=== PATIENT | male | born 1975 | race African-American/Black ===

== ENCOUNTER 2016-11-23 15:33 | Emergency (ER) | payer OTHER ==
--- NOTE | 2016-11-23 16:19 | REP ---
Chest one-view HISTORY: Chest pain Comparison: None The lungs are clear. The heart is normal in size. The pulmonary vasculature is normal in appearance. Impression: No acute disease. Signed by Jose Granger MD 11/23/2016 04:11 P
[2016-11-23 16:26] LABS: ANION GAP 8 MEQ/L (8-16); BLOOD UREA NITROGEN 21 MG/DL (7-18); CALCIUM LEVEL 8.7 MG/DL (8.5-10.1); CARBON DIOXIDE LEVEL 29 MEQ/L (21-32); CHLORIDE LEVEL 101 MEQ/L (98-107); CREATININE FOR GFR 1.25 MG/DL (0.70-1.30); GLOMERULAR FILTRATION RATE > 60.0 (>60); GLUCOSE, FASTING 94 MG/DL (70-105); POTASSIUM SERUM 3.9 MEQ/L (3.5-5.1); SODIUM LEVEL 138 MEQ/L (136-145)
[2016-11-23] MEDS ORDERED: KETOROLAC 30 MG/ML VIAL (J1885) As Ordered ONE (16:30)
[2016-11-23] MEDS ORDERED: ACETAMINOPHEN 325 MG TAB As Ordered ONE (16:30)
[2016-11-23 16:33] LABS: BASO % 0.1 % (0.0-1.0); EOS % 0.5 % (0.0-3.0); LARGE UNSTAINED CELL # 0.1 K/mm3 (0.0-0.4); LARGE UNSTAINED CELL % 1.3 % (0.0-4.0); LYMPH # 0.5 K/mm3 (1.5-4.5); LYMPH % 5.1 % (24.0-44.0); MEAN CORPUSCULAR HEMOGLOBIN 30.1 pg (27.0-33.0); MEAN CORPUSCULAR VOLUME 88.5 fl (80.0-96.0); MONO # 0.6 K/mm3 (0.0-0.8); MONO % 5.5 % (0.0-5.0); NEUTROPHILS # 9.1 K/mm3 (1.8-7.7); NEUTROPHILS % 87.4 % (36.0-66.0); PLATELET COUNT, AUTOMATED 156 k/mm3 (150-450); RED CELL DISTRIBUTION WIDTH 12.5 % (11.5-14.5); WHITE BLOOD COUNT 10.4 K/mm3 (4.0-10.0)
--- NOTE | 2016-11-23 16:43 | REP ---
SINGLE VIEW CHEST, LATERAL FILM: HISTORY: Chest pain. COMPARISON: Portable AP view of the chest obtained 30 minutes earlier. FINDINGS: The posterior pleural angles are sharp. Heart does not appear enlarged on lateral radiograph. No infiltrate is seen. IMPRESSION: No additional abnormality. No active disease. Signed by Guido Ba MD 11/23/2016 04:55 P
--- NOTE | 2016-11-23 18:55 | EDDOCDS ---
Physician Documentation [facility] Name: Shai Mckeon Age: 41 yrs Sex: Male : 1975 Arrival Date: 11/23/2016 Time: 15:33 Bed 18 Private MD: Disposition: 11/23/16 18:18 Discharged to Home/Self Care. Impression: Pleurodynia. - Condition is Stable. - Prescriptions for Prednisone 20 mg Oral Tablet - take 3 tablet by ORAL route once daily for 5 days; 15 tablet. ketorolac 10 mg Oral Tablet - take 1 tablet by ORAL route 3 times per day As needed MDD- 30mg. Up to 5 days total use.; 15 tablet. - Medication Reconciliation, Local Pharmacy Hours form. - Follow up: Private Physician; When: Call to arrange an appointment; Reason: Recheck today's complaints. - Problem is new. - Symptoms have improved. Historical: - Allergies: Ciprofloxacin HCl (Swelling); - Home Meds: 1. none - PMHx: none; - PSHx: Right Wrist Fracture Repair; - Social history: Smoking status: Patient states was never smoker of tobacco. No barriers to communication noted, The patient speaks fluent Slovenian. - Family history: Not pertinent. - : The pt / caregiver states he / she is not on anticoagulants. Home medication list is obtained from the patient. - Exposure Risk Screening:: None identified. Vital Signs: 11/23 15:48 BP 122 / 70; Pulse 82; Resp 20; Temp 100.7(O); Pulse Ox 97% on R/A; Weight 99.79 kg / jc4 220 lbs; Height 5 ft. 10 in. (177.80 cm); Pain 7/10; 16:03 BP 131 / 80 (auto/); jc4 16:03 Pulse 82 MON; Pulse Ox 97% ; jc4 16:54 BP 123 / 66 (auto/); jc4 16:54 Pulse 86 MON; Pulse Ox 96% ; jc4 16:55 BP 123 / 66; Pulse 93; Resp 20 S; Pulse Ox 96% on R/A; Pain 3/10; jc4 17:23 Pulse 84 MON; Pulse Ox 95% ; jc4 17:24 BP 121 / 65 (auto/); jc4 17:54 BP 132 / 76 (auto/); jc4 17:59 Pulse 88 MON; Pulse Ox 93% ; jc4 18:14 Temp 99.7(O); jc4 18:48 BP 133 / 63; Pulse 90; Resp 20; Temp 98.9(O); Pulse Ox 96% on R/A; Pain 2/10; jc4 15:48 Body Mass Index 31.57 (99.79 kg, 177.80 cm) jc4 MDM: 15:36 Landscape Account Manager/Pulse Ox/q 30 min VS ordered. sd1 15:36 IV Saline Lock ordered. sd1 15:36 Rhythm Strip to chart ordered. sd1 15:36 Undress patient appropriately for examination ordered. sd1 15:37 Basic Metabolic Profile Ordered. EDMS 15:37 CBC with Diff Ordered. EDMS 15:37 Cardiac Injury Profile Ordered. EDMS 15:37 Troponin Ordered. EDMS 15:37 portable chest Ordered. EDMS 15:37 ECG WITH READING ER PHYS+CARDIAG ordered. EDMS 16:10 -Blood Culture (Adults Only), peripheral from different site, or from device/port/PICC cs11 etc. if present ordered. 16:10 Acetaminophen Tablet 975 mg PO once ordered. cs11 16:10 ketorolac 30 mg IVP once ordered. cs11 16:11 -Blood Culture Ordered. EDMS 16:11 Lactic Acid (Catherine tube on ice) Ordered. EDMS 16:11 -Influenza A&B Rapid Antigen - Nose Ordered. EDMS 16:19 -Blood Culture (Adults Only), peripheral from different site, or from device/port/PICC lbd etc. if present complete. 16:30 BLOOD CULTURES Ordered. EDMS 16:31 Chest, 1 view Ordered. EDMS 16:49 Basic Metabolic Profile Reviewed. cs11 16:49 CBC with Diff Reviewed. cs11 16:49 Cardiac Injury Profile Reviewed. cs11 16:49 Troponin Reviewed. cs11 16:49 portable chest Reviewed. cs11 16:49 NS 0.9% 1000 ml IV at bolus once ordered. cs11 18:14 Lactic Acid (Catherine tube on ice) Reviewed. cs11 18:14 -Influenza A&B Rapid Antigen - Nose Reviewed. cs11 18:14 Chest, 1 view Reviewed. cs11 Administered Medications: 16:40 Drug: ketorolac 30 mg [ketorolac 30 mg/mL (1 mL) injection solution (1 mL)] Route: IVP; jc4 Site: left antecubital; 16:55 Follow up: BP 123 / 66; Pulse 93 bpm; Resp 20 bpm Spontaneous; Pulse Ox 96% RA; Pain jc4 01/28 Adult 16:42 Drug: Acetaminophen 975 mg [acetaminophen 325 mg tablet (3 tabs)] Route: PO; jc4 18:14 Follow up: Temp 99.7 Oral jc4 16:55 Drug: NS 0.9% 1000 ml [sodium chloride 0.9 % intravenous solution] Route: IV; Rate: jc4 bolus; Site: left antecubital; 18:48 Follow up: IV Status: Completed infusion; IV Intake: 1000ml jc4 Signatures: Dispatcher [employer] EDNahomi Edwards MD MD sd1 Luz Carcamo, Vehicle Maintenance Supervisor Unit lbd Shantel Hopkins RN RN jc4 Roel Bush, DO cs11 The chart was reviewed and I authenticate all verbal orders and agree with the evaluation and treatment provided.Corrections: (The following items were deleted from the chart) 16:30 16:11 Chest, 2 view (PA\E\Lat)+XR ordered. EDMS EDMS MTDD
--- NOTE | 2016-11-23 18:55 | EDDOCDS ---
Nurse's Notes [facility] Name: Shai Mckeon Age: 41 yrs Sex: Male : 1975 Arrival Date: 11/23/2016 Time: 15:33 Bed 18 Private MD: Diagnosis: Pleurodynia Presentation: 11/23 15:38 Presenting complaint: EMS states: that they were called to [place] [id number] Facility for patient who developed chest pain that began at 1200 today. States went to [facility] at 1415. Was given 1 Nitroglycerin at [facility]. Aspirin was taken ENDOCRINOLOGIST. Suicide/Homicide risk assessment- the patient denies having any suicidal and/or homicidal ideations and does not present with any other emotional, behavioral or mental health complaints. Status: Patient is not a rn patient services or dependent. Transition of care: patient was not received from another setting of care. Care prior to arrival: See EMS report. Medications administered prior to arrival: NTG, Saline lock initiated. Glucose check. 119 mg/dl. 15:38 Method Of Arrival: Ambulance [facility] 15:49 Adult Sepsis Screening: The patient does not have new or worsening altered mentation. jc4 Patient's respiratory rate is less than 22. Systolic blood pressure is greater than 100. Patient has a qSOFA score of 0- Negative Sepsis Screen. 15:49 Acuity: VINNY Level 2 4 Triage Assessment: 15:41 General: Appears in no apparent distress. Pain: Pain currently is 7 out of 10 on a pain jc4 scale. The patient is triaged at the bedside. See Assessment in Nurses Notes section of ED record. Cardiovascular: Chest pain is described as Pain is 7 out of 10 on a pain scale. is located in scapular region radiates Does not radiate. episodes are continuous began at 1200 is aggravated by activity, breathing. 18:17 Pt Declines HIV testing. jc4 Historical: - Allergies: Ciprofloxacin HCl (Swelling); - Home Meds: 1. none - PMHx: none; - PSHx: Right Wrist Fracture Repair; - Social history: Smoking status: Patient states was never smoker of tobacco. No barriers to communication noted, The patient speaks fluent Cape Verdean. - Family history: Not pertinent. - : The pt / caregiver states he / she is not on anticoagulants. Home medication list is obtained from the patient. - Exposure Risk Screening:: None identified. Screenin:10 Screening information is obtained from the patient. Fall risk: No risks identified. jc4 Assistance ADL's: requires no assistance with activities of daily living. Abuse/DV Screen: The patient / caregiver reports he/she is: not in a situation that causes fear, pain or injury. Nutritional screening: No deficits noted. Advance Directives: Currently, there is no health care proxy. There is no active DNR order. There is no living will. There is no Power of Bilingual Executive Assistant. home support is adequate. Assessment: 15:35 General: Appears in no apparent distress, Behavior is cooperative. Pain: Pain currently jc4 is 7 out of 10 on a pain scale. Pain: Location: thoracic area. Neurological: Level of Consciousness is awake, alert, Oriented to person, place, time. EENT: Oral mucosa is moist. Cardiovascular: Rhythm is sinus rhythm No ectopy. Cardiovascular: Edema is absent. Respiratory: Airway is patent Respiratory effort is even, unlabored, Respiratory pattern is regular, symmetrical, Breath sounds are clear bilaterally. Derm: Skin is pink, warm & dry. 16:30 Reassessment: Patient appears in no apparent distress at this time. General: Appears. jc4 18:15 General: Appears Reports Pt resting on stretcher. Appears comfortable at this time. jc4 Color pink, skin warm and dry. Respirations easy and full. hydraulic riveter - sinus rhythm without ectopy. IVF infusing well, site clear. Call bolaños in reach. Correction officers at bedside. 18:48 General: Appears in no apparent distress, Behavior is cooperative, pleasant. Pain: Pain jc4 currently is 3 out of 10 on a pain scale. Neurological: Level of Consciousness is awake, alert, Oriented to person, place, time. Respiratory: Airway is patent Respiratory effort is even, unlabored, Respiratory pattern is regular, symmetrical. Derm: Skin is pink, warm & dry. Vital Signs: 15:48 BP 122 / 70; Pulse 82; Resp 20; Temp 100.7(O); Pulse Ox 97% on R/A; Weight 99.79 kg; jc4 Height 5 ft. 10 in. (177.80 cm); Pain 7/10; 16:03 BP 131 / 80 (auto/); jc4 16:03 Pulse 82 MON; Pulse Ox 97% ; jc4 16:54 BP 123 / 66 (auto/); jc4 16:54 Pulse 86 MON; Pulse Ox 96% ; jc4 16:55 BP 123 / 66; Pulse 93; Resp 20 S; Pulse Ox 96% on R/A; Pain 3/10; jc4 17:23 Pulse 84 MON; Pulse Ox 95% ; jc4 17:24 BP 121 / 65 (auto/); jc4 17:54 BP 132 / 76 (auto/); jc4 17:59 Pulse 88 MON; Pulse Ox 93% ; jc4 18:14 Temp 99.7(O); jc4 18:48 BP 133 / 63; Pulse 90; Resp 20; Temp 98.9(O); Pulse Ox 96% on R/A; Pain 2/10; jc4 15:48 Body Mass Index 31.57 (99.79 kg, 177.80 cm) jc4 Vitals: 15:41 Log In Time N/A - ambulance arrival. jc4 ED Course: 15:34 Patient visited by Luz Carcamo, Sound Effects Supervisor. lbd 15:34 Patient moved to Waiting lbd 15:35 Shantel Hopkins, [place] is Primary Nurse. lbd 15:35 Patient moved to 18 lbd 15:49 The patient / caregiver is instructed regarding the plan of care and ED course. Cardiac jc4 monitor on. Pulse ox on. NIBP on. 15:49 Maintain field IV. Dressing intact. Site clean & dry. Gauge & site: 18 gauge left jc4 antecubital. 15:50 Triage Initiated jc4 15:50 EKG done. (by ED staff). Reviewed by Nahomi Moore MD. ct3 15:52 Patient visited by Alisson Sams PCA. ct3 15:59 Basic Metabolic Profile Sent. jc4 15:59 CBC with Diff Sent. jc4 15:59 Cardiac Injury Profile Sent. jc4 15:59 Troponin Sent. jc4 16:02 Roel Bush DO is Attending Physician. cs11 16:02 Patient visited by Roel Bush DO. cs11 16:37 portable chest Returned. EDMS 16:39 Patient visited by Shantel Hopkins, [place]. jc4 16:40 Lactic Acid (Catherine tube on ice) Sent. jc4 16:40 -Blood Culture Sent. jc4 16:52 BLOOD CULTURES Sent. jc4 16:52 -Influenza A&B Rapid Antigen - Nose Sent. jc4 17:23 Chest, 1 view Returned. EDMS 18:10 Patient visited by Shantel Hopkins, [place]. jc4 18:17 Patient visited by Shantel Hopkins RN. jc4 18:49 Discontinued lock intact, bleeding controlled, pressure dressing applied, No jc4 redness/swelling at site. No procedures done that require assistance. Administered Medications: 16:40 Drug: ketorolac 30 mg [ketorolac 30 mg/mL (1 mL) injection solution (1 mL)] Route: IVP; jc4 Site: left antecubital; 16:55 Follow up: BP 123 / 66; Pulse 93 bpm; Resp 20 bpm Spontaneous; Pulse Ox 96% RA; Pain jc4 01/28 Adult 16:42 Drug: Acetaminophen 975 mg [acetaminophen 325 mg tablet (3 tabs)] Route: PO; jc4 18:14 Follow up: Temp 99.7 Oral jc4 16:55 Drug: NS 0.9% 1000 ml [sodium chloride 0.9 % intravenous solution] Route: IV; Rate: jc4 bolus; Site: left antecubital; 18:48 Follow up: IV Status: Completed infusion; IV Intake: 1000ml jc4 Intake: 18:48 IV: 1000.00ml; Total: 1000.00ml. jc4 Output: 18:11 Urine: 1000.00ml (Voided); Total: 1000.00ml. jc4 Order Results: Lab Order: Basic Metabolic Profile; SPEC'M 11/23/16 15:57 Test: GLUCOSE, FASTING; Value: 94; Range: 70-105; Units: MG/DL; Status: F Test: BLOOD UREA NITROGEN; Value: 21; Range: 7-18; Abnormal: Above high normal; Units: MG/DL; Status: F Test: CREATININE FOR GFR; Value: 1.25; Range: 0.70-1.30; Units: MG/DL; Status: F Test: GLOMERULAR FILTRATION RATE; Value: > 60.0; Range: >60; Status: F Test: SODIUM LEVEL; Value: 138; Range: 136-145; Units: MEQ/L; Status: F Test: POTASSIUM SERUM; Value: 3.9; Range: 3.5-5.1; Units: MEQ/L; Status: F Test: CHLORIDE LEVEL; Value: 101; Range: 98-107; Units: MEQ/L; Status: F Test: CARBON DIOXIDE LEVEL; Value: 29; Range: 21-32; Units: MEQ/L; Status: F Test: ANION GAP; Value: 8; Range: 8-16; Units: MEQ/L; Status: F Test: CALCIUM LEVEL; Value: 8.7; Range: 8.5-10.1; Units: MG/DL; Status: F Test Note: ; Units are mL/min/1.73 m2 Chronic Kidney Disease Staging per NKF: Stage I & II GFR >=60 Normal to Mildly Decreased Stage III GFR 30-59 Moderately Decreased Stage IV GFR 15-29 Severely Decreased Stage V GFR <15 Very Little GFR Left ESRD GFR <15 on CUSTOMER SERVICE ADVISOR Lab Order: CBC with Diff; SPEC'M 11/23/16 15:57 Test: WHITE BLOOD COUNT; Value: 10.4; Range: 4.0-10.0; Abnormal: Above high normal; Units: K/mm3; Status: F Test: RED BLOOD COUNT; Value: 4.96; Range: 4.30-6.10; Units: M/mm3; Status: F Test: HEMOGLOBIN; Value: 14.9; Range: 14.0-18.0; Units: g/dl; Status: F Test: HEMATOCRIT; Value: 43.8; Range: 42.0-52.0; Units: %; Status: F Test: MEAN CORPUSCULAR VOLUME; Value: 88.5; Range: 80.0-96.0; Units: fl; Status: F Test: MEAN CORPUSCULAR HEMOGLOBIN; Value: 30.1; Range: 27.0-33.0; Units: pg; Status: F Test: MEAN CORPUSCULAR HGB CONC; Value: 34.0; Range: 32.0-36.5; Units: g/dl; Status: F Test: RED CELL DISTRIBUTION WIDTH; Value: 12.5; Range: 11.5-14.5; Units: %; Status: F Test: PLATELET COUNT, AUTOMATED; Value: 156; Range: 150-450; Units: k/mm3; Status: F Test: NEUTROPHILS %; Value: 87.4; Range: 36.0-66.0; Abnormal: Above high normal; Units: %; Status: F Test: LYMPH %; Value: 5.1; Range: 24.0-44.0; Abnormal: Below low normal; Units: %; Status: F Test: MONO %; Value: 5.5; Range: 0.0-5.0; Abnormal: Above high normal; Units: %; Status: F Test: EOS %; Value: 0.5; Range: 0.0-3.0; Units: %; Status: F Test: BASO %; Value: 0.1; Range: 0.0-1.0; Units: %; Status: F Test: LARGE UNSTAINED CELL %; Value: 1.3; Range: 0.0-4.0; Units: %; Status: F Test: NEUTROPHILS #; Value: 9.1; Range: 1.8-7.7; Abnormal: Above high normal; Units: K/mm3; Status: F Test: LYMPH #; Value: 0.5; Range: 1.5-4.5; Abnormal: Below low normal; Units: K/mm3; Status: F Test: MONO #; Value: 0.6; Range: 0.0-0.8; Units: K/mm3; Status: F Test: EOS #; Value: 0.0; Range: 0.0-0.50; Units: K/mm3; Status: F Test: BASO #; Value: 0.0; Range: 0.0-0.2; Units: K/mm3; Status: F Test: LARGE UNSTAINED CELL #; Value: 0.1; Range: 0.0-0.4; Units: K/mm3; Status: F Lab Order: Cardiac Injury Profile; SPEC'M 11/23/16 15:57 Test: CPK CREATINE PHOSPHOKINASE; Value: 639; Range: 39-308; Abnormal: Above high normal; Units: U/L; Status: F Test: CK-MB VALUE MASS; Value: 5.5; Range: 0.0-3.6; Abnormal: Above high normal; Units: NG/ML; Status: F Test: MB/CK RELATIVE INDEX; Value: 0.86; Range: < OR =4; Status: F Test Note: ; DIAGNOSIS CRITERIA MMB ng/ml Relative Index (RI) NON-AMI < or = 5 N/A CATHERINE ZONE > 5 < or = 4 AMI > 5 > 4 Lab Order: Troponin; SPEC'M 11/23/16 15:57 Test: TROPONIN I; Value: < 0.02; Range: < 0.10; Units: NG/ML; Status: F Test Note: ; Troponin I Reference Interval for Siemens [place] LOCI: 99th Percentile= 0.00-0.045 ng/ml Risk Stratification: <= 0.10 ng/ml Decreased Risk for Adverse Clinical Events. 0.10-1.50 ng/ml Increased Risk for Adverse Clinical Events. Evaluation of additional criterion and/or repeat testing in 2-6 hours is suggested to rule out myocardial damage. >= 1.50 ng/ml Indicative of Myocardial Injury. Lab Order: Lactic Acid (Catherine tube on ice); SPEC'M 11/23/16 16:38 Test: LACTIC ACID LEVEL, LACTATE; Value: 2.0; Range: 0.4-2.0; Units: MMOL/L; Status: F Lab Order: -Influenza A&B Rapid Antigen - Nose; SPEC'M 11/23/16 16:38 Test: INFLUENZA A RAPID SCR by ICA; Value: INFLUENZA A RESULTS NEGATIVE; Status: F Test: INFLUENZA A RAPID SCR by ICA; Value: Comments:; Status: F Test: INFLUENZA B RAPID SCR by ICA; Value: INFLUENZA B RESULTS NEGATIVE; Status: F Test Note: ; The Influenza test is a direct rapid immunoassay for the qualitative detection of Influenza viral antigen. Cell culture (Viral Culture) testing should be considered to confirm NEGATIVE results and to assist in detecting other viruses that can provide similar clinical symptoms. Please contact the lab within 24 hours ([phone]) if confirmatory testing is desired. Radiology Order: portable chest Test: portable chest REASON FOR EXAMINATION: Chest Pain; Chest one-view; ; HISTORY: Chest pain; ; Comparison: None; ; The lungs are clear. The heart is normal in size. The pulmonary vasculature is; normal in appearance.; ; Impression: No acute disease.; ; ; Signed by; Jose Granger MD 11/23/2016 04:11 P; Radiology Order: Chest, 1 view Test: Chest, 1 view REASON FOR EXAMINATION: Chest Pain; SINGLE VIEW CHEST, LATERAL FILM:; ; HISTORY: Chest pain.; ; COMPARISON: Portable AP view of the chest obtained 30 minutes earlier.; ; FINDINGS: The posterior pleural angles are sharp. Heart does not appear enlarged; on lateral radiograph. No infiltrate is seen.; ; IMPRESSION:; ; No additional abnormality. No active disease.; ; ; Signed by; Guido Ba MD 11/23/2016 04:55 P; Outcome: 18:18 Discharge ordered by Provider. cs11 18:49 Discharge Assessment: Patient awake, alert and oriented x 3. No cognitive and/or [facility] functional deficits noted. Patient verbalized understanding of disposition instructions. patient administered narcotics - no. The following High Risk Discharge criteria are identified: None. Discharged to [facility] with staff. Condition: stable. Discharge instructions given to patient, and corrections staff Instructed on discharge instructions, follow up and referral plans. medication usage, Demonstrated understanding of instructions, medications, Pt was receptive of discharge instructions/ teaching. Prescriptions given X 2. No special radiology studies were completed. Property :Personal belongings accompany Pt. 18:54 Admission hand-off: Other: Report called to nurse Kaylin at [place] [address] Facility . 18:55 Patient left the ED. [facility] Signatures: Dispatcher [employer] EDMS Luz Carcamo, Sound Effects Supervisor Unit lbd Shantel Hopkins, RN RN jc4 Alisson Sams, FUEL TRUCK DRIVER FUEL TRUCK DRIVER ct3 Roel Bush, DO cs11 MTDD
--- NOTE | 2016-11-24 19:46 | ECGEPIP ---
Stationary ECG Study [facility] - ED Test Date: 2016-11-23 Pat Name: ANITRA RHOADES Department: Room: - Gender: M Report Clerk: ct : 1975 Requested By: Nahomi Moore Order Number: [id number] Reading MD: Nahomi Moore Measurements Intervals [place] Rate: 84 P: 39 OK: 186 QRS: 75 QRSD: 104 T: 21 QT: 344 QTc: 408 Interpretive Statements SINUS RHYTHM ST ELEVATION CONSISTENT WITH INJURY, PERICARDITIS, OR EARLY REPOLARIZATION NONSPECIFIC ST & T-WAVE ABNORMALITY CLINICAL CORRELATION NO PRIOR FOR COMPARISON Electronically Signed On 11-24-2016 19:46:06 EST by Nahomi Moore
--- NOTE | 2016-11-25 19:56 | EDDOCDS ---
Physician Documentation [facility] Name: Shai Mckeon Age: 41 yrs Sex: Male : 1975 Arrival Date: 11/23/2016 Time: 15:33 Bed 18 Private MD: Disposition: 11/23/16 18:18 Discharged to Home/Self Care. Impression: Pleurodynia. - Condition is Stable. - Prescriptions for Prednisone 20 mg Oral Tablet - take 3 tablet by ORAL route once daily for 5 days; 15 tablet. ketorolac 10 mg Oral Tablet - take 1 tablet by ORAL route 3 times per day As needed MDD- 30mg. Up to 5 days total use.; 15 tablet. - Medication Reconciliation, Local Pharmacy Hours form. - Follow up: Private Physician; When: Call to arrange an appointment; Reason: Recheck today's complaints. - Problem is new. - Symptoms have improved. Historical: - Allergies: Ciprofloxacin HCl (Swelling); - Home Meds: 1. none - PMHx: none; - PSHx: Right Wrist Fracture Repair; - Social history: Smoking status: Patient states was never smoker of tobacco. No barriers to communication noted, The patient speaks fluent Congolese. - Family history: Not pertinent. - : The pt / caregiver states he / she is not on anticoagulants. Home medication list is obtained from the patient. - Exposure Risk Screening:: None identified. Vital Signs: 11/23 15:48 BP 122 / 70; Pulse 82; Resp 20; Temp 100.7(O); Pulse Ox 97% on R/A; Weight 99.79 kg / jc4 220 lbs; Height 5 ft. 10 in. (177.80 cm); Pain 7/10; 16:03 BP 131 / 80 (auto/); jc4 16:03 Pulse 82 MON; Pulse Ox 97% ; jc4 16:54 BP 123 / 66 (auto/); jc4 16:54 Pulse 86 MON; Pulse Ox 96% ; jc4 16:55 BP 123 / 66; Pulse 93; Resp 20 S; Pulse Ox 96% on R/A; Pain 3/10; jc4 17:23 Pulse 84 MON; Pulse Ox 95% ; jc4 17:24 BP 121 / 65 (auto/); jc4 17:54 BP 132 / 76 (auto/); jc4 17:59 Pulse 88 MON; Pulse Ox 93% ; jc4 18:14 Temp 99.7(O); jc4 18:48 BP 133 / 63; Pulse 90; Resp 20; Temp 98.9(O); Pulse Ox 96% on R/A; Pain 2/10; jc4 15:48 Body Mass Index 31.57 (99.79 kg, 177.80 cm) jc4 MDM: 15:36 Residential Housekeeper/Pulse Ox/q 30 min VS ordered. sd1 15:36 IV Saline Lock ordered. sd1 15:36 Rhythm Strip to chart ordered. sd1 15:36 Undress patient appropriately for examination ordered. sd1 15:37 Basic Metabolic Profile Ordered. EDMS 15:37 CBC with Diff Ordered. EDMS 15:37 Cardiac Injury Profile Ordered. EDMS 15:37 Troponin Ordered. EDMS 15:37 portable chest Ordered. EDMS 15:37 ECG WITH READING ER PHYS+CARDIAG ordered. EDMS 16:10 -Blood Culture (Adults Only), peripheral from different site, or from device/port/PICC cs11 etc. if present ordered. 16:10 Acetaminophen Tablet 975 mg PO once ordered. cs11 16:10 ketorolac 30 mg IVP once ordered. cs11 16:11 -Blood Culture Ordered. EDMS 16:11 Lactic Acid (Catherine tube on ice) Ordered. EDMS 16:11 -Influenza A&B Rapid Antigen - Nose Ordered. EDMS 16:19 -Blood Culture (Adults Only), peripheral from different site, or from device/port/PICC lbd etc. if present complete. 16:30 BLOOD CULTURES Ordered. EDMS 16:31 Chest, 1 view Ordered. EDMS 16:49 Basic Metabolic Profile Reviewed. cs11 16:49 CBC with Diff Reviewed. cs11 16:49 Cardiac Injury Profile Reviewed. cs11 16:49 Troponin Reviewed. cs11 16:49 portable chest Reviewed. cs11 16:49 NS 0.9% 1000 ml IV at bolus once ordered. cs11 18:14 Lactic Acid (Catherine tube on ice) Reviewed. cs11 18:14 -Influenza A&B Rapid Antigen - Nose Reviewed. cs11 18:14 Chest, 1 view Reviewed. 11 11/24 09:34 T-Sheet-- Draft Copy was scanned into [email or web address] and attached to record. gb 09:34 ECG/EKG was scanned into [email or web address] and attached to record. gb 09:34 Trend VS was scanned into [email or web address] and attached to record. gb Administered Medications: 11/23 16:40 Drug: ketorolac 30 mg [ketorolac 30 mg/mL (1 mL) injection solution (1 mL)] Route: IVP; jc4 Site: left antecubital; 16:55 Follow up: BP 123 / 66; Pulse 93 bpm; Resp 20 bpm Spontaneous; Pulse Ox 96% RA; Pain jc4 01/28 Adult 16:42 Drug: Acetaminophen 975 mg [acetaminophen 325 mg tablet (3 tabs)] Route: PO; jc4 18:14 Follow up: Temp 99.7 Oral jc4 16:55 Drug: NS 0.9% 1000 ml [sodium chloride 0.9 % intravenous solution] Route: IV; Rate: jc4 bolus; Site: left antecubital; 18:48 Follow up: IV Status: Completed infusion; IV Intake: 1000ml jc4 Signatures: Dispatcher [employer] EDMS Nahomi Moore MD MD sd1 Luz Carcamo, Custom Shoe Designer And Maker Unit lbd Claudia Bland, Reg Reg gb Shantel Hopkins, RN RN jc4 Roel Bush DO DO cs11 The chart was reviewed and I authenticate all verbal orders and agree with the evaluation and treatment provided.Corrections: (The following items were deleted from the chart) 16:30 16:11 Chest, 2 view (PA\E\Lat)+XR ordered. EDMS EDMS Attachments: 11/24 09:34 T-Sheet-- Draft Copy gb 09:34 ECG/EKG gb Chart Complete MTDD
--- NOTE | 2016-11-25 19:56 | EDDOCDS ---
Nurse's Notes [facility] Name: Anitra Rhoades Age: 41 yrs Sex: Male : 1975 Arrival Date: 11/23/2016 Time: 15:33 Bed 18 Private MD: Diagnosis: Pleurodynia Presentation: 11/23 15:38 Presenting complaint: EMS states: that they were called to [place] [address] Facility for patient who developed chest pain that began at 1200 today. States went to [facility] at 1415. Was given [address] [facility]. 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 Suicide/Homicide risk assessment- the patient denies having any suicidal and/or homicidal ideations and does not present with any other emotional, behavioral or mental health complaints. Status: Patient is not a off premise service representative or dependent. Transition of care: patient was not received from another setting of care. Care prior to arrival: See EMS report. Medications administered prior to arrival: NTG, Saline lock initiated. Glucose check. 119 mg/dl. 15:38 Method Of Arrival: Ambulance [facility] 15:49 Adult Sepsis Screening: The patient does not have new or worsening altered mentation. jc4 Patient's respiratory rate is less than 22. Systolic blood pressure is greater than 100. Patient has a qSOFA score of 0- Negative Sepsis Screen. 15:49 Acuity: VINNY Level 2 4 Triage Assessment: 15:41 General: Appears in no apparent distress. Pain: Pain currently is 7 out of 10 on a pain jc4 scale. The patient is triaged at the bedside. See Assessment in Nurses Notes section of ED record. Cardiovascular: Chest pain is described as Pain is 7 out of 10 on a pain scale. is located in scapular region radiates Does not radiate. episodes are continuous began at 1200 is aggravated by activity, breathing. 18:17 Pt Declines HIV testing. jc4 Historical: - Allergies: Ciprofloxacin HCl (Swelling); - Home Meds: 1. none - PMHx: none; - PSHx: Right Wrist Fracture Repair; - Social history: Smoking status: Patient states was never smoker of tobacco. No barriers to communication noted, The patient speaks fluent British. - Family history: Not pertinent. - : The pt / caregiver states he / she is not on anticoagulants. Home medication list is obtained from the patient. - Exposure Risk Screening:: None identified. Screenin:10 Screening information is obtained from the patient. Fall risk: No risks identified. jc4 Assistance ADL's: requires no assistance with activities of daily living. Abuse/DV Screen: The patient / caregiver reports he/she is: not in a situation that causes fear, pain or injury. Nutritional screening: No deficits noted. Advance Directives: Currently, there is no health care proxy. There is no active DNR order. There is no living will. There is no Power of Machinist Class B. home support is adequate. Assessment: 15:35 General: Appears in no apparent distress, Behavior is cooperative. Pain: Pain currently jc4 is 7 out of 10 on a pain scale. Pain: Location: thoracic area. Neurological: Level of Consciousness is awake, alert, Oriented to person, place, time. EENT: Oral mucosa is moist. Cardiovascular: Rhythm is sinus rhythm No ectopy. Cardiovascular: Edema is absent. Respiratory: Airway is patent Respiratory effort is even, unlabored, Respiratory pattern is regular, symmetrical, Breath sounds are clear bilaterally. Derm: Skin is pink, warm & dry. 16:30 Reassessment: Patient appears in no apparent distress at this time. General: Appears. jc4 18:15 General: Appears Reports Pt resting on stretcher. Appears comfortable at this time. jc4 Color pink, skin warm and dry. Respirations easy and full. secured entrance monitor - sinus rhythm without ectopy. IVF infusing well, site clear. Call bolaños in reach. Correction officers at bedside. 18:48 General: Appears in no apparent distress, Behavior is cooperative, pleasant. Pain: Pain jc4 currently is 3 out of 10 on a pain scale. Neurological: Level of Consciousness is awake, alert, Oriented to person, place, time. Respiratory: Airway is patent Respiratory effort is even, unlabored, Respiratory pattern is regular, symmetrical. Derm: Skin is pink, warm & dry. Vital Signs: 15:48 BP 122 / 70; Pulse 82; Resp 20; Temp 100.7(O); Pulse Ox 97% on R/A; Weight 99.79 kg; jc4 Height 5 ft. 10 in. (177.80 cm); Pain 7/10; 16:03 BP 131 / 80 (auto/); jc4 16:03 Pulse 82 MON; Pulse Ox 97% ; jc4 16:54 BP 123 / 66 (auto/); jc4 16:54 Pulse 86 MON; Pulse Ox 96% ; jc4 16:55 BP 123 / 66; Pulse 93; Resp 20 S; Pulse Ox 96% on R/A; Pain 3/10; jc4 17:23 Pulse 84 MON; Pulse Ox 95% ; jc4 17:24 BP 121 / 65 (auto/); jc4 17:54 BP 132 / 76 (auto/); jc4 17:59 Pulse 88 MON; Pulse Ox 93% ; jc4 18:14 Temp 99.7(O); jc4 18:48 BP 133 / 63; Pulse 90; Resp 20; Temp 98.9(O); Pulse Ox 96% on R/A; Pain 2/10; jc4 15:48 Body Mass Index 31.57 (99.79 kg, 177.80 cm) jc4 Vitals: 15:41 Log In Time N/A - ambulance arrival. jc4 ED Course: 15:34 Patient visited by Luz Carcamo, Freight Coordinator. lbd 15:34 Patient moved to Waiting lbd 15:35 Shantel Hopkins, [place] is Primary Nurse. lbd 15:35 Patient moved to 18 lbd 15:49 The patient / caregiver is instructed regarding the plan of care and ED course. Cardiac jc4 monitor on. Pulse ox on. NIBP on. 15:49 Maintain field IV. Dressing intact. Site clean & dry. Gauge & site: 18 gauge left jc4 antecubital. 15:50 Triage Initiated jc4 15:50 EKG done. (by ED staff). Reviewed by Nahomi Moore MD. ct3 15:52 Patient visited by Alisson Sams PCA. ct3 15:59 Basic Metabolic Profile Sent. jc4 15:59 CBC with Diff Sent. jc4 15:59 Cardiac Injury Profile Sent. jc4 15:59 Troponin Sent. jc4 16:02 Roel Bush DO is Attending Physician. cs11 16:02 Patient visited by Roel Bush DO. cs11 16:37 portable chest Returned. EDMS 16:39 Patient visited by Shantel Hopkins, [place]. jc4 16:40 Lactic Acid (Catherine tube on ice) Sent. jc4 16:40 -Blood Culture Sent. jc4 16:52 BLOOD CULTURES Sent. jc4 16:52 -Influenza A&B Rapid Antigen - Nose Sent. jc4 17:23 Chest, 1 view Returned. EDMS 18:10 Patient visited by Shantel Hopkins, [place]. jc4 18:17 Patient visited by Shantel Hopkins, [place]. jc4 18:49 Discontinued lock intact, bleeding controlled, pressure dressing applied, No jc4 redness/swelling at site. No procedures done that require assistance. 23:25 Patient name changed from Anitra\S\\S\Mike\S\ to Anitra\S\ \S\Mike. EDMS 11/24 09:34 T-Sheet-- Draft Copy was scanned into i[employer] and attached to record. gb 09:34 ECG/EKG was scanned into [employer] and attached to record. gb 09:34 Trend VS was scanned into [employer] and attached to record. gb 20:05 EKG-ADULT Returned. EDMS Administered Medications: 11/23 16:40 Drug: ketorolac 30 mg [ketorolac 30 mg/mL (1 mL) injection solution (1 mL)] Route: IVP; jc4 Site: left antecubital; 16:55 Follow up: BP 123 / 66; Pulse 93 bpm; Resp 20 bpm Spontaneous; Pulse Ox 96% RA; Pain jc4 310 Adult 16:42 Drug: Acetaminophen 975 mg [acetaminophen 325 mg tablet (3 tabs)] Route: PO; jc4 18:14 Follow up: Temp 99.7 Oral jc4 16:55 Drug: NS 0.9% 1000 ml [sodium chloride 0.9 % intravenous solution] Route: IV; Rate: jc4 bolus; Site: left antecubital; 18:48 Follow up: IV Status: Completed infusion; IV Intake: 1000ml jc4 Attachments: 09:34 Trend VS gb Intake: 11/23 18:48 IV: 1000.00ml; Total: 1000.00ml. jc4 Output: 18:11 Urine: 1000.00ml (Voided); Total: 1000.00ml. jc4 Order Results: Lab Order: Basic Metabolic Profile; SPEC'M 11/23/16 15:57 Test: GLUCOSE, FASTING; Value: 94; Range: 70-105; Units: MG/DL; Status: F Test: BLOOD UREA NITROGEN; Value: 21; Range: 7-18; Abnormal: Above high normal; Units: MG/DL; Status: F Test: CREATININE FOR GFR; Value: 1.25; Range: 0.70-1.30; Units: MG/DL; Status: F Test: GLOMERULAR FILTRATION RATE; Value: > 60.0; Range: >60; Status: F Test: SODIUM LEVEL; Value: 138; Range: 136-145; Units: MEQ/L; Status: F Test: POTASSIUM SERUM; Value: 3.9; Range: 3.5-5.1; Units: MEQ/L; Status: F Test: CHLORIDE LEVEL; Value: 101; Range: 98-107; Units: MEQ/L; Status: F Test: CARBON DIOXIDE LEVEL; Value: 29; Range: 21-32; Units: MEQ/L; Status: F Test: ANION GAP; Value: 8; Range: 8-16; Units: MEQ/L; Status: F Test: CALCIUM LEVEL; Value: 8.7; Range: 8.5-10.1; Units: MG/DL; Status: F Test Note: ; Units are mL/min/1.73 m2 Chronic Kidney Disease Staging per NKF: Stage I & II GFR >=60 Normal to Mildly Decreased Stage III GFR 30-59 Moderately Decreased Stage IV GFR 15-29 Severely Decreased Stage V GFR <15 Very Little GFR Left ESRD GFR <15 on SPACE OPERATIONS OFFICER Lab Order: CBC with Diff; SPEC'M 11/23/16 15:57 Test: WHITE BLOOD COUNT; Value: 10.4; Range: 4.0-10.0; Abnormal: Above high normal; Units: K/mm3; Status: F Test: RED BLOOD COUNT; Value: 4.96; Range: 4.30-6.10; Units: M/mm3; Status: F Test: HEMOGLOBIN; Value: 14.9; Range: 14.0-18.0; Units: g/dl; Status: F Test: HEMATOCRIT; Value: 43.8; Range: 42.0-52.0; Units: %; Status: F Test: MEAN CORPUSCULAR VOLUME; Value: 88.5; Range: 80.0-96.0; Units: fl; Status: F Test: MEAN CORPUSCULAR HEMOGLOBIN; Value: 30.1; Range: 27.0-33.0; Units: pg; Status: F Test: MEAN CORPUSCULAR HGB CONC; Value: 34.0; Range: 32.0-36.5; Units: g/dl; Status: F Test: RED CELL DISTRIBUTION WIDTH; Value: 12.5; Range: 11.5-14.5; Units: %; Status: F Test: PLATELET COUNT, AUTOMATED; Value: 156; Range: 150-450; Units: k/mm3; Status: F Test: NEUTROPHILS %; Value: 87.4; Range: 36.0-66.0; Abnormal: Above high normal; Units: %; Status: F Test: LYMPH %; Value: 5.1; Range: 24.0-44.0; Abnormal: Below low normal; Units: %; Status: F Test: MONO %; Value: 5.5; Range: 0.0-5.0; Abnormal: Above high normal; Units: %; Status: F Test: EOS %; Value: 0.5; Range: 0.0-3.0; Units: %; Status: F Test: BASO %; Value: 0.1; Range: 0.0-1.0; Units: %; Status: F Test: LARGE UNSTAINED CELL %; Value: 1.3; Range: 0.0-4.0; Units: %; Status: F Test: NEUTROPHILS #; Value: 9.1; Range: 1.8-7.7; Abnormal: Above high normal; Units: K/mm3; Status: F Test: LYMPH #; Value: 0.5; Range: 1.5-4.5; Abnormal: Below low normal; Units: K/mm3; Status: F Test: MONO #; Value: 0.6; Range: 0.0-0.8; Units: K/mm3; Status: F Test: EOS #; Value: 0.0; Range: 0.0-0.50; Units: K/mm3; Status: F Test: BASO #; Value: 0.0; Range: 0.0-0.2; Units: K/mm3; Status: F Test: LARGE UNSTAINED CELL #; Value: 0.1; Range: 0.0-0.4; Units: K/mm3; Status: F Lab Order: Cardiac Injury Profile; SPEC'M 11/23/16 15:57 Test: CPK CREATINE PHOSPHOKINASE; Value: 639; Range: 39-308; Abnormal: Above high normal; Units: U/L; Status: F Test: CK-MB VALUE MASS; Value: 5.5; Range: 0.0-3.6; Abnormal: Above high normal; Units: NG/ML; Status: F Test: MB/CK RELATIVE INDEX; Value: 0.86; Range: < OR =4; Status: F Test Note: ; DIAGNOSIS CRITERIA MMB ng/ml Relative Index (RI) NON-AMI < or = 5 N/A CATHERINE ZONE > 5 < or = 4 AMI > 5 > 4 Lab Order: Troponin; [facility] 11/23/16 15:57 Test: TROPONIN I; Value: < 0.02; Range: < 0.10; Units: NG/ML; Status: F Test Note: ; Troponin I Reference Interval for [employer] LOCI: 99th Percentile= 0.00-0.045 ng/ml Risk Stratification: <= 0.10 ng/ml Decreased Risk for Adverse Clinical Events. 0.10-1.50 ng/ml Increased Risk for Adverse Clinical Events. Evaluation of additional criterion and/or repeat testing in 2-6 hours is suggested to rule out myocardial damage. >= 1.50 ng/ml Indicative of Myocardial Injury. Lab Order: -Blood Culture; SPECM 11/23/16 16:38 Test: BLOOD CULTURE; Value: No growth after 24 hours . All specimens observed; Status: F Test: BLOOD CULTURE; Value: for 5 days. Results final at that time.; Status: F Test: BLOOD CULTURE; Value: No Growth after 48 hours. All Specimens observed; Status: F Test: BLOOD CULTURE; Value: for 7 days. Results final at that time.; Status: F Lab Order: Lactic Acid (Catherine tube on ice); SPEC'M 11/23/16 16:38 Test: LACTIC ACID LEVEL, LACTATE; Value: 2.0; Range: 0.4-2.0; Units: MMOL/L; Status: F Lab Order: -Influenza A&B Rapid Antigen - Nose; SPECM 11/23/16 16:38 Test: INFLUENZA A RAPID SCR by ICA; Value: INFLUENZA A RESULTS NEGATIVE; Status: F Test: INFLUENZA A RAPID SCR by ICA; Value: Comments:; Status: F Test: INFLUENZA B RAPID SCR by ICA; Value: INFLUENZA B RESULTS NEGATIVE; Status: F Test Note: ; The Influenza test is a direct rapid immunoassay for the qualitative detection of Influenza viral antigen. Cell culture (Viral Culture) testing should be considered to confirm NEGATIVE results and to assist in detecting other viruses that can provide similar clinical symptoms. Please contact the lab within 24 hours ([phone]) if confirmatory testing is desired. Lab Order: BLOOD CULTURES; SPEC'M 11/23/16 16:50 Test: BLOOD CULTURE; Value: No growth after 24 hours . All specimens observed; Status: F Test: BLOOD CULTURE; Value: for 5 days. Results final at that time.; Status: F Test: BLOOD CULTURE; Value: No Growth after 48 hours. All Specimens observed; Status: F Test: BLOOD CULTURE; Value: for 7 days. Results final at that time.; Status: F Radiology Order: portable chest Test: portable chest REASON FOR EXAMINATION: Chest Pain; Chest one-view; ; HISTORY: Chest pain; ; Comparison: None; ; The lungs are clear. The heart is normal in size. 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 Educator: ct; : 1975 Requested By: Nahomi Moore; Order Number: [id number] Reading MD: Nahomi Moore; Measurements; Intervals [place]; Rate: 84 P: 39; MN: 186 QRS: 75; QRSD: 104 T: 21; QT: 344; QTc: 408; Interpretive Statements; SINUS RHYTHM; ST ELEVATION CONSISTENT WITH INJURY, PERICARDITIS, OR EARLY REPOLARIZATION; NONSPECIFIC ST T-WAVE ABNORMALITY; CLINICAL CORRELATION; NO PRIOR FOR COMPARISON; Electronically Signed On 11-24-2016 19:46:06 EST by Nahomi Moore; Radiology Order: Chest, 1 view Test: Chest, 1 view REASON FOR EXAMINATION: Chest Pain; SINGLE VIEW CHEST, LATERAL FILM:; ; HISTORY: Chest pain.; ; COMPARISON: Portable AP view of the chest obtained 30 minutes earlier.; ; FINDINGS: The posterior pleural angles are sharp. Heart does not appear enlarged; on lateral radiograph. No infiltrate is seen.; ; IMPRESSION:; ; No additional abnormality. No active disease.; ; ; Signed by; Guido Ba MD 11/23/2016 04:55 P; Outcome: 18:18 Discharge ordered by Provider. cs11 18:49 Discharge Assessment: Patient awake, alert and oriented x 3. No cognitive and/or [facility] functional deficits noted. Patient verbalized understanding of disposition instructions. patient administered narcotics - no. The following High Risk Discharge criteria are identified: None. Discharged to [facility] with staff. Condition: stable. Discharge instructions given to patient, and corrections staff Instructed on discharge instructions, follow up and referral plans. medication usage, Demonstrated understanding of instructions, medications, Pt was receptive of discharge instructions/ teaching. Prescriptions given X 2. No special radiology studies were completed. Property :Personal belongings accompany Pt. 18:54 Admission hand-off: Other: Report called to nurse Kaylin at [place] [address] Facility . 18:55 Patient left the ED. [facility] Signatures: Dispatcher [employer] EDMS Luz Carcamo, Freight Coordinator Unit lbd Claudia Bland, Tonio Reg Shantel White RN RN jc4 Alisson Sams, JOE CHURN DRILL OPERATOR ct3 Roel Bush, DO cs11 Chart Complete MTDD
--- NOTE | 2016-11-25 19:56 | EDDOCDS ---
Physician Documentation [facility] Name: Shai Mckeon Age: 41 yrs Sex: Male : 1975 Arrival Date: 11/23/2016 Time: 15:33 Bed 18 Private MD: Disposition: 11/23/16 18:18 Discharged to Home/Self Care. Impression: Pleurodynia. - Condition is Stable. - Prescriptions for Prednisone 20 mg Oral Tablet - take 3 tablet by ORAL route once daily for 5 days; 15 tablet. ketorolac 10 mg Oral Tablet - take 1 tablet by ORAL route 3 times per day As needed MDD- 30mg. Up to 5 days total use.; 15 tablet. - Medication Reconciliation, Local Pharmacy Hours form. - Follow up: Private Physician; When: Call to arrange an appointment; Reason: Recheck today's complaints. - Problem is new. - Symptoms have improved. Historical: - Allergies: Ciprofloxacin HCl (Swelling); - Home Meds: 1. none - PMHx: none; - PSHx: Right Wrist Fracture Repair; - Social history: Smoking status: Patient states was never smoker of tobacco. No barriers to communication noted, The patient speaks fluent Bulgarian. - Family history: Not pertinent. - : The pt / caregiver states he / she is not on anticoagulants. Home medication list is obtained from the patient. - Exposure Risk Screening:: None identified. Vital Signs: 11/23 15:48 BP 122 / 70; Pulse 82; Resp 20; Temp 100.7(O); Pulse Ox 97% on R/A; Weight 99.79 kg / jc4 220 lbs; Height 5 ft. 10 in. (177.80 cm); Pain 7/10; 16:03 BP 131 / 80 (auto/); jc4 16:03 Pulse 82 MON; Pulse Ox 97% ; jc4 16:54 BP 123 / 66 (auto/); jc4 16:54 Pulse 86 MON; Pulse Ox 96% ; jc4 16:55 BP 123 / 66; Pulse 93; Resp 20 S; Pulse Ox 96% on R/A; Pain 3/10; jc4 17:23 Pulse 84 MON; Pulse Ox 95% ; jc4 17:24 BP 121 / 65 (auto/); jc4 17:54 BP 132 / 76 (auto/); jc4 17:59 Pulse 88 MON; Pulse Ox 93% ; jc4 18:14 Temp 99.7(O); jc4 18:48 BP 133 / 63; Pulse 90; Resp 20; Temp 98.9(O); Pulse Ox 96% on R/A; Pain 2/10; jc4 15:48 Body Mass Index 31.57 (99.79 kg, 177.80 cm) jc4 MDM: 15:36 Machine Gunner/Pulse Ox/q 30 min VS ordered. sd1 15:36 IV Saline Lock ordered. sd1 15:36 Rhythm Strip to chart ordered. sd1 15:36 Undress patient appropriately for examination ordered. sd1 15:37 Basic Metabolic Profile Ordered. EDMS 15:37 CBC with Diff Ordered. EDMS 15:37 Cardiac Injury Profile Ordered. EDMS 15:37 Troponin Ordered. EDMS 15:37 portable chest Ordered. EDMS 15:37 ECG WITH READING ER PHYS+CARDIAG ordered. EDMS 16:10 -Blood Culture (Adults Only), peripheral from different site, or from device/port/PICC cs11 etc. if present ordered. 16:10 Acetaminophen Tablet 975 mg PO once ordered. cs11 16:10 ketorolac 30 mg IVP once ordered. cs11 16:11 -Blood Culture Ordered. EDMS 16:11 Lactic Acid (Catherine tube on ice) Ordered. EDMS 16:11 -Influenza A&B Rapid Antigen - Nose Ordered. EDMS 16:19 -Blood Culture (Adults Only), peripheral from different site, or from device/port/PICC lbd etc. if present complete. 16:30 BLOOD CULTURES Ordered. EDMS 16:31 Chest, 1 view Ordered. EDMS 16:49 Basic Metabolic Profile Reviewed. cs11 16:49 CBC with Diff Reviewed. cs11 16:49 Cardiac Injury Profile Reviewed. cs11 16:49 Troponin Reviewed. cs11 16:49 portable chest Reviewed. cs11 16:49 NS 0.9% 1000 ml IV at bolus once ordered. cs11 18:14 Lactic Acid (Catherine tube on ice) Reviewed. cs11 18:14 -Influenza A&B Rapid Antigen - Nose Reviewed. cs11 18:14 Chest, 1 view Reviewed. 11 11/24 09:34 T-Sheet-- Draft Copy was scanned into jiffstore and attached to record. gb 09:34 ECG/EKG was scanned into jiffstore and attached to record. gb 09:34 Trend VS was scanned into jiffstore and attached to record. gb Administered Medications: 11/23 16:40 Drug: ketorolac 30 mg [ketorolac 30 mg/mL (1 mL) injection solution (1 mL)] Route: IVP; jc4 Site: left antecubital; 16:55 Follow up: BP 123 / 66; Pulse 93 bpm; Resp 20 bpm Spontaneous; Pulse Ox 96% RA; Pain jc4 01/28 Adult 16:42 Drug: Acetaminophen 975 mg [acetaminophen 325 mg tablet (3 tabs)] Route: PO; jc4 18:14 Follow up: Temp 99.7 Oral jc4 16:55 Drug: NS 0.9% 1000 ml [sodium chloride 0.9 % intravenous solution] Route: IV; Rate: jc4 bolus; Site: left antecubital; 18:48 Follow up: IV Status: Completed infusion; IV Intake: 1000ml jc4 Signatures: Dispatcher [employer] EDMS Nahomi Moore MD MD sd1 Luz Carcamo, Dance Director Unit lbd Claudia Bland, Reg Reg gb Shantel Hopkins, RN RN jc4 Roel Bush DO DO cs11 The chart was reviewed and I authenticate all verbal orders and agree with the evaluation and treatment provided.Corrections: (The following items were deleted from the chart) 16:30 16:11 Chest, 2 view (PA\E\Lat)+XR ordered. EDMS EDMS Attachments: 11/24 09:34 T-Sheet-- Draft Copy gb 09:34 ECG/EKG gb Chart Complete MTDD
== END 2016-11-23 18:55 | disposition home or self-care (01) ==
LOC: M ED 15:33
DX: R07.81 Pleurodynia (principal); Z88.1 Allergy status to other antibiotic agents
CPT/HCPCS: 71010; 80048; 82550; 82553; 83605; 85025; 87040; 87804; 93005; 93041; 96361; 96374; 99284; J1885